=== PATIENT | male | born 1940 | race Caucasian/White ===

== ENCOUNTER → 2017-11-03 | Outpatient (CLI) | payer MEDICARE ==
[~2017-11-03] MED LIST: ALLO300T2 PO; AMBI5TAB PO; AMLO5 PO; ASPI81 PO; CELE1CAP8 PO; CIAL5TAB PO; D 50CAP2 PO; ECASA81 PO; ETOD200 PO; FENO145T2 PO; FENO50TA PO; FISHCAP4 PO; FLUD.1 PO; FLUT50SP EACH NARE; FOSI20 PO; FOSI20TA PO; HYDR-3580 PO; HYDR5TAB64 PO; L. A1CAP2 PO; LUMI0.01 EACH EYE; MAGN500T5 PO; MECL-62 PO; MECL25 PO; MELA1TAB18 PO; META28.34 PO; MULT-65 PO; OMEP20TA93 PO; OMEP40CA2 PO; PRIL40CA PO; ROSU1TAB4 PO; TAMS0.4C4 PO; TIMO0.255 OU; TIMO1SOL6 EACH EYE; VALS1TAB65 PO; VITA100T10 PO; ZANT150T2 PO; ZOCO80TA PO
[2017-11-03 09:19] LABS: BACTERIA, URINE RARE /hpf; BILIRUBIN, URINE NEG (NEG); BLOOD, URINE NEG (NEG); GLUCOSE,URINE NEG (NEG); KETONE, URINE NEG (NEG); NITRITE,URINE NEG (NEG); PH, URINE 5.5 (5.0-8.5); URINE COLOR YELLOW (YELLW/STRAW); URINE LEUKOCYTE ESTERASE NEG (NEG)
[2017-11-03 09:21] LABS: AUTOMATED NEUTROPHIL # 2.8 TH/MM3 (1.8-7.7); BASOPHIL % 0.5 % (0.0-2.0); EOSINOPHIL # 0.5 TH/MM3 (0-0.4); EOSINOPHIL % 8.1 % (0.0-4.0); HEMATOCRIT 41.5 % (39.0-51.0); LYMPH % 37.8 % (9.0-44.0); LYMPHOCYTE # 2.5 TH/MM3 (1.0-4.8); MEAN CORPUSCULAR HEMOGLOBIN 31.1 PG (27.0-34.0); MEAN CORPUSCULAR HGB CONC 33.8 % (32.0-36.0); MEAN PLATELET VOLUME 7.8 FL (7.0-11.0); MONO % 12.2 % (0.0-8.0); MONOCYTE # 0.8 TH/MM3 (0-0.9); NEUT % 41.4 % (16.0-70.0); PLATELET COUNT 194 TH/MM3 (150-450); RED BLOOD COUNT 4.51 MIL/MM3 (4.50-5.90); RED CELL DISTRIBUTION WIDTH 14.1 % (11.6-17.2); WHITE BLOOD COUNT 6.6 TH/MM3 (4.0-11.0)
[2017-11-03 09:26] LABS: INTERNATIONAL NORMALIZED RATIO 1.1 RATIO
[2017-11-03 09:56] LABS: ALBUMIN 3.7 GM/DL (3.4-5.0); AST (GOT) 20 U/L (15-37); BICARBONATE 30.7 MEQ/L (21.0-32.0); BLOOD UREA NITROGEN 13 MG/DL (7-18); CALCIUM 9.7 MG/DL (8.5-10.1); CHLORIDE 107 MEQ/L (98-107); CREATININE 0.93 MG/DL (0.60-1.30); GLOMERULAR FILTRATION RATE 79 ML/MIN (>89); GLUCOSE,FASTING 82 MG/DL (74-99); SODIUM (NA) 142 MEQ/L (136-145)
[2017-11-03 10:01] LABS: ALKALINE PHOSPHATASE 101 U/L (45-117); ALT (GPT) 26 U/L (12-78); TOTAL BILIRUBIN ADULT 0.3 MG/DL (0.2-1.0); TOTAL PROTEIN 7.5 GM/DL (6.4-8.2)
== END ==
LOC: CPRE 08:11
PROVIDERS: ATTEND Surgery
DX: Z01.812 Encounter for preprocedural laboratory examination (principal); M79.609 Pain in unspecified limb
CPT/HCPCS: 36415; 80053; 81001; 85025; 85610; 85730